=== PATIENT | female | born 2000 | race American Indian/Alaskan Native ===

== ENCOUNTER 2019-04-16 13:29 | Outpatient (CLI) | payer MEDICAID ==
[2019-04-16 13:58] VITALS: BP 113/58
== END 2019-04-16 14:31 | disposition home or self-care (01) ==
LOC: TRG 13:29
PROVIDERS: ATTEND Obstetrics & Gynecology
DX: O47.1 False labor at or after 37 completed weeks of gestation (principal); Z3A.39 39 weeks gestation of pregnancy

== ENCOUNTER 2021-10-25 20:06 | Emergency (ER) | payer MEDICAID ==
[2021-10-25 20:19] VITALS: BP 114/79
[2021-10-26] MEDS ORDERED: HYDROcodone/ACETAMINOPHEN 5-325 MG TAB PO ONE (01:02)
[2021-10-26] MEDS ORDERED: IBUPROFEN 600 MG TAB PO ONE (01:02)
[2021-10-26] MEDS ORDERED: ONDANSETRON 4 MG ODT TAB PO ONE (01:02)
[2021-10-26 01:35] LABS: Basophils # (Auto) 0.1 K/mm3 (0.0-0.1); Basophils % (Auto) 0.5 % (0.0-1.8); Eosinophils # (Auto) 0.3 K/mm3 (0.0-0.4); Eosinophils % (Auto) 2.6 % (0.0-4.3); Hematocrit 39.9 % (30.3-42.9); Hemoglobin 13.2 gm/dl (10.1-14.3); Lymphocytes # (Auto) 4.5 K/mm3 (1.2-5.4); Lymphocytes % (Auto) 38.4 % (13.4-35.0); Mean Corpuscular HGB Conc 33 % (30-34); Mean Corpuscular Volume 86 fl (79-97); Monocytes # (Auto) 0.7 K/mm3 (0.0-0.8); Monocytes % (Auto) 5.6 % (0.0-7.3); Platelet Count 317 K/mm3 (140-440); Red Blood Count 4.62 M/mm3 (3.65-5.03); Red Cell Distribution Width 13.8 % (13.2-15.2)
[2021-10-26 01:39] LABS: Mucus,Urine 3+ /HPF
[2021-10-26 01:41] LABS: Bilirubin,Urine Negative (Negative); Color,Urine Yellow (Yellow)
[2021-10-26 01:42] LABS: Blood,Urine Moderate (Negative); Urobilinogen,Urine < 2.0 mg/dL (<2.0)
[2021-10-26 01:54] LABS: Alanine Aminotransferase 10 units/L (7-56); Albumin 4.1 g/dL (3.9-5); Blood Urea Nitrogen 5 mg/dL (7-17); Calcium 9.7 mg/dL (8.4-10.2); Hemolysis Index 31
[2021-10-26 01:57] LABS: BUN/Creatinine Ratio 7
[2021-10-26] MEDS ORDERED: LIDOCAINE-MPF (1%) 10 MG/1 ML VIAL 5 ML INFILTRATI ONE (02:29)
--- NOTE | 2021-10-26 04:16 | Emergency Department Report ---
ED Female HPI - General Chief complaint: Pain General Stated complaint: BODY PAIN X 30 DAYS Source: patient Mode of arrival: Stretcher Limitations: No Limitations - History of Present Illness Initial comments: Patient is a A0 21-year-old -Sammarinese female with a history of asthma who presents to the ED with complaint of acute onset persistent suprapubic pain, persistent dysmenorrhea with heavy vaginal bleeding for the last 1 month. Patient states that she has a subcutaneous Nexplanon implant on her left upper arm for the last 6 months and that she has not had the symptoms since the control was placed in her left upper arm. Patient states that the bleeding has been constant and persistent with severe dysmenorrhea. Patient also complains of nausea and vomiting and headache with lightheadedness for the last 3 days, stating that the suprapubic pain now radiates to the low back. Patient denies fever, chills, diarrhea, dyspareunia, vaginal discharge, dysuria, chest pain or shortness of breath or sore throat. MD Complaint: vaginal bleeding, pelvic pain -: Gradual, month(s) (1) Location: suprapubic Radiation: non-radiating Severity: severe Severity scale (0 -10): 8 Quality: cramping, sharp Consistency: constant Improves with: none Worsens with: menstrual period Are you Now?: No Associated Symptoms: denies other symptoms, vaginal bleeding, abdominal pain (Suprapubic), nausea/vomiting, fever/chills, headaches, loss of appetite. denie s: vaginal discharge, dysuria, hematuria, seizure, shortness of breath, syncope, weakness - Related Data Sexually active: Yes : 2 Para: 2 A: 0 Previous Rx's Medication Instructions Recorded Last Taken Type Ibuprofen [Motrin] 600 mg PO Q8H PRN #30 tablet 10/26/21 Unknown Rx Ondansetron [Zofran Odt] 4 mg PO Q8HR PRN #15 tab.rapdis 10/26/21 Unknown Rx cephALEXin [Keflex] 500 mg PO Q8HR #30 cap 10/26/21 Unknown Rx medroxyPROGESTERone ACETATE 10 mg PO DAILY #14 tab 10/26/21 Unknown Rx [Medroxyprogesterone Acetate] traMADoL [Ultram] 50 mg PO Q6HR PRN #12 tablet 10/26/21 Unknown Rx Allergies Allergy/AdvReac Type Severity Reaction Status Date / Time No Known Allergies Allergy Verified 04/16/19 13:57 ED Review of Systems ROS: Stated complaint: BODY PAIN X 30 DAYS Other details as noted in HPI Constitutional: denies: chills, fever Eyes: denies: eye pain, eye discharge, vision change ENT: denies: ear pain, throat pain Respiratory: denies: cough, shortness of breath, wheezing Cardiovascular: denies: chest pain, palpitations Endocrine: no symptoms reported Gastrointestinal: abdominal pain (Suprapubic pain), nausea, vomiting. denies: diarrhea Genitourinary: frequency, abnormal menses (Heavy vaginal bleeding ). denies: urgency, dysuria, discharge Musculoskeletal: denies: back pain, joint swelling, arthralgia Skin: denies: rash, lesions Neurological: headache. denies: weakness, paresthesias Psychiatric: denies: anxiety, depression Hematological/Lymphatic: denies: easy bleeding, easy bruising ED Past Medical Hx - Past Medical History Previous Medical History?: Yes Hx Hypertension: No Hx Diabetes: No Hx Deep Vein Thrombosis: No Hx Renal Disease: No Hx Sickle Cell Disease: No Hx Seizures: No Hx Asthma: Yes (as a child) Hx HIV: No - Surgical History Past Surgical History?: No - Social History Smoking Status: Never Smoker Substance Use Type: None - Medications Home Medications: Home Medications Medication Instructions Recorded Confirmed Last Taken Type Ibuprofen [Motrin] 600 mg PO Q8H PRN #30 tablet 10/26/21 Unknown Rx Ondansetron [Zofran Odt] 4 mg PO Q8HR PRN #15 tab.rapdis 10/26/21 Unknown Rx cephALEXin [Keflex] 500 mg PO Q8HR #30 cap 10/26/21 Unknown Rx medroxyPROGESTERone ACETATE 10 mg PO DAILY #14 tab 10/26/21 Unknown Rx [Medroxyprogesterone Acetate] traMADoL [Ultram] 50 mg PO Q6HR PRN #12 tablet 10/26/21 Unknown Rx ED Physical Exam - General Limitations: No Limitations General appearance: alert, in no apparent distress - Head Head exam: Present: atraumatic, normocephalic, normal inspection - Eye Eye exam: Present: normal appearance, PERRL, EOMI Pupils: Present: normal accommodation - ENT ENT exam: Present: normal exam, normal orophraynx, mucous membranes moist, TM's normal bilaterally, normal external ear exam - Neck Neck exam: Present: normal inspection, full ROM - Respiratory Respiratory exam: Present: normal lung sounds bilaterally. Absent: respiratory distress, wheezes, rales, rhonchi, chest wall tenderness, accessory muscle use, decreased breath sounds, prolonged expiratory - Cardiovascular Cardiovascular Exam: Present: regular rate, normal rhythm, normal heart sounds. Absent: systolic murmur, diastolic murmur, rubs, gallop - GI/Abdominal GI/Abdominal exam: Present: soft, tenderness (Palpable mild suprapubic tenderness), normal bowel sounds. Absent: guarding, rebound, hyperactive bowel sounds, hypoactive bowel sounds, organomegaly, mass - Bi-manual exam: Present: other (Pelvic exam deferred at this time) - Extremities Exam Extremities exam: Present: normal inspection, full ROM, normal capillary refill. Absent: tenderness - Back Exam Back exam: Present: normal inspection, full ROM, tenderness (Palpable lumbosac ral paraspinal musculoskeletal tender), muscle spasm, paraspinal tenderness. Absent: CVA tenderness (R), CVA tenderness (L) - Neurological Exam Neurological exam: Present: alert, oriented X3, CN II-XII intact, normal gait, reflexes normal - Psychiatric Psychiatric exam: Present: normal affect, normal mood - Skin Skin exam: Present: warm, dry, intact, normal color. Absent: rash ED Course Vital Signs 10/25/21 20:16 Temperature 98.2 F Pulse Rate 79 Respiratory 18 Rate Blood Pressure 114/79 O2 Sat by Pulse 99 Oximetry ED Medical Decision Making - Lab Data Result diagrams: 10/26/21 01:14 10/26/21 01:14 - Medical Decision Making This is a A0 21-year-old -Sammarinese female with a history of asthma who presents to the ED with complaint of acute onset persistent suprapubic pain, persistent dysmenorrhea with heavy vaginal bleeding for the last 1 month. Patient states that she has a subcutaneous Nexplanon implant on her left upper arm for the last 6 months and that she has not had the symptoms since the control was placed in her left upper arm. Patient states that the bleeding has been constant and persistent with severe dysmenorrhea. Patient also complains of nausea and vomiting and headache with lightheadedness for the last 3 days, stating that the suprapubic pain now radiates to the low back. In the ED, patient is alert and oriented x3 and is not in any distress. Patient was treated for pain in the ED. Lab test results were reviewed and are all nonactionable except for mild acute leukocytosis of 11,700 and significant urinary tract infection in urinalysis. Patient was treated for pain in the ED and also given Rocephin 1 g intramuscular injection in the ED. On reevaluation, patient's pain is well controlled medication. Patient will discharge home on pain medications and antibiotics and advised to follow-up with her MD PHYSICIAN DERMATOLOGIST physician in 5 to 7 days for reevaluation or return to the ED immediately if symptoms get worse - Differential Diagnosis Dysmenorrhea; UTI; miscarriage; uterine fibroids; ovarian cyst; Critical care attestation.: If time is entered above; I have spent that time in minutes in the direct care of this critically ill patient, excluding procedure time. ED Disposition Clinical Impression: Dysfunctional or functional uterine hemorrhage, Acute urinary tract infection, Severe dysmenorrhea, Menometrorrhagia Disposition: 01 HOME / SELF CARE / HOMELESS Is pt being admited?: No Does the pt Need Aspirin: No Condition: Stable Instructions: Urinary Tract Infection, Adult, Qbwg-[id number]-Gqug, Metrorrhagia, Huyq-ki-Hfvo, Menorrhagia, Scrb-sk-Nxnn, Abnormal Uterine Bleeding, Zitd-qb-Lgue, Dysmenorrhea, Ytql-oh-Crdh Additional Instructions: All lab test results were reviewed and are all nonactionable except for urinalysis that showed significant urinary tract infection. Therefore take medication with food, drink plenty of fluids, follow-up with your MD PHYSICIAN DERMATOLOGIST physician in 5 to 7 days for reevaluation. Return to the ED immediately if symptoms get worse Prescriptions: cephALEXin [Keflex] 500 mg PO Q8HR #30 cap medroxyPROGESTERone ACETATE [Medroxyprogesterone Acetate] 10 mg PO DAILY #14 tab Ibuprofen [Motrin] 600 mg PO Q8H PRN #30 tablet PRN Reason: Pain traMADoL [Ultram] 50 mg PO Q6HR PRN #12 tablet PRN Reason: Pain Ondansetron [Zofran Odt] 4 mg PO Q8HR PRN #15 tab.rapdis PRN Reason: Nausea Referrals: MAGDIEL LOERA MD [Staff Physician] - 7-10 days Forms: Work/School Release Form(ED) Time of Disposition: 04:20 Print Language: MALTESE
== END 2021-10-26 04:33 | disposition home or self-care (01) ==
LOC: ED 20:06
DX: N39.0 Urinary tract infection, site not specified (principal); N93.8 Other specified abnormal uterine and vaginal bleeding; N94.6 Dysmenorrhea, unspecified; N92.1 Excessive and frequent menstruation with irregular cycle; J45.909 Unspecified asthma, uncomplicated; Z79.899 Other long term (current) drug therapy
CPT/HCPCS: 36415; 80053; 81001; 84702; 85025; 87086; 96372; 99283; J0696; J3490; Q0162

== ENCOUNTER 2022-02-02 23:01 | Emergency (ER) | payer MEDICAID ==
--- NOTE | 2022-02-03 09:26 | Emergency Department Report ---
ED General Adult HPI - General Chief complaint: Back Pain/Injury Stated complaint: LOWER BACK PAIN/HEADACHE Time Seen by Provider: 02/03/22 07:31 Source: patient Mode of arrival: Ambulatory Limitations: No Limitations - History of Present Illness Initial comments: This is a 21-year-old female nontoxic, well nourished in appearance, no acute signs of distress presents to the ED with c/o of generalized body aches, left hip pains, and lower back pain x several days. Patient stated that she was seen in an urgent care and was instructed to get chest xrays, lumbar and left hip imaging. Patient denies any radiation of pain. Patient otherwise denies any other complaints or symptoms. Denies any injuries. Denies any bladder or bowel instability. Patient denies any urinary symptoms. Denies any abdominal pains, flank pains, urinary symptoms, fever, chills, nausea, vomiting, headache, stiff neck, chest pain or shortness of breath. Patient denies any numbness or tingling. Denies any allergies. -: days(s) Radiation: non-radiation Severity scale (0 -10): 8 Quality: aching Consistency: intermittent Improves with: movement Worsens with: immobilization Associated Symptoms: denies other symptoms. denies: confusion, chest pain, cough, diaphoresis, fever/chills, headaches, loss of appetite, malaise, nausea/vomiting, rash, seizure, shortness of breath, syncope, weakness Treatments Prior to Arrival: none - Related Data Previous Rx's Medication Instructions Recorded Last Taken Type Ibuprofen [Motrin] 600 mg PO Q8H PRN #30 tablet 10/26/21 Unknown Rx Ondansetron [Zofran Odt] 4 mg PO Q8HR PRN #15 tab.rapdis 10/26/21 Unknown Rx cephALEXin [Keflex] 500 mg PO Q8HR #30 cap 10/26/21 Unknown Rx medroxyPROGESTERone ACETATE 10 mg PO DAILY #14 tab 10/26/21 Unknown Rx [Medroxyprogesterone Acetate] traMADoL [Ultram] 50 mg PO Q6HR PRN #12 tablet 10/26/21 Unknown Rx Naproxen 500 mg PO Q12H PRN #12 tab 02/03/22 Unknown Rx Allergies Allergy/AdvReac Type Severity Reaction Status Date / Time No Known Allergies Allergy Verified 04/16/19 13:57 ED Review of Systems ROS: Stated complaint: LOWER BACK PAIN/HEADACHE Other details as noted in HPI Comment: All other systems reviewed and negative Constitutional: denies: chills, fever Eyes: denies: eye pain, eye discharge, vision change ENT: denies: ear pain, throat pain Respiratory: denies: cough, shortness of breath, wheezing Cardiovascular: denies: chest pain, palpitations Endocrine: no symptoms reported Gastrointestinal: denies: abdominal pain, nausea, vomiting, diarrhea, constipation, hematemesis, melena, hematochezia Genitourinary: denies: urgency, dysuria, discharge Musculoskeletal: back pain. denies: joint swelling, arthralgia Skin: denies: rash, lesions Neurological: denies: headache, weakness, paresthesias Psychiatric: denies: anxiety, depression Hematological/Lymphatic: denies: easy bleeding, easy bruising ED Past Medical Hx - Past Medical History Hx Hypertension: No Hx Diabetes: No Hx Deep Vein Thrombosis: No Hx Renal Disease: No Hx Sickle Cell Disease: No Hx Seizures: No Hx Asthma: Yes (as a child) Hx HIV: No - Social History Smoking Status: Never Smoker Substance Use Type: None - Medications Home Medications: Home Medications Medication Instructions Recorded Confirmed Last Taken Type Ibuprofen [Motrin] 600 mg PO Q8H PRN #30 tablet 10/26/21 Unknown Rx Ondansetron [Zofran Odt] 4 mg PO Q8HR PRN #15 tab.rapdis 10/26/21 Unknown Rx cephALEXin [Keflex] 500 mg PO Q8HR #30 cap 10/26/21 Unknown Rx medroxyPROGESTERone ACETATE 10 mg PO DAILY #14 tab 10/26/21 Unknown Rx [Medroxyprogesterone Acetate] traMADoL [Ultram] 50 mg PO Q6HR PRN #12 tablet 10/26/21 Unknown Rx Naproxen 500 mg PO Q12H PRN #12 tab 02/03/22 Unknown Rx ED Physical Exam - General Limitations: No Limitations General appearance: alert, in no apparent distress - Head Head exam: Present: atraumatic, normocephalic - Eye Eye exam: Present: normal appearance - Neck Neck exam: Present: normal inspection, full ROM. Absent: tenderness, meningismus, lymphadenopathy - Respiratory Respiratory exam: Present: normal lung sounds bilaterally. Absent: respiratory distress, wheezes, rales, rhonchi, stridor, chest wall tenderness, accessory muscle use, decreased breath sounds, prolonged expiratory - Cardiovascular Cardiovascular Exam: Present: regular rate, normal rhythm, normal heart sounds. Absent: bradycardia, tachycardia, irregular rhythm, systolic murmur, diastolic murmur, rubs, gallop - GI/Abdominal GI/Abdominal exam: Present: soft, normal bowel sounds. Absent: distended, tenderness, guarding, rebound, rigid, diminished bowel sounds - Extremities Exam Extremities exam: Present: normal inspection, full ROM, normal capillary refill. Absent: tenderness, pedal edema, joint swelling, calf tenderness - Back Exam Back exam: Present: normal inspection, full ROM, paraspinal tenderness (left lumbar paraspinal). Absent: tenderness, CVA tenderness (R), CVA tenderness (L), muscle spasm, vertebral tenderness, rash noted - Expanded Back Exam Expanded Back exam: Absent: saddle anesthesia Back exam: Negative Straight Leg Raising: Left, Right - Neurological Exam Neurological exam: Present: alert, oriented X3, normal gait - Psychiatric Psychiatric exam: Present: normal affect, normal mood - Skin Skin exam: Present: warm, dry, intact, normal color. Absent: rash ED Course Vital Signs 02/02/22 02/03/22 02/03/22 23:35 09:35 09:37 Temperature 98.1 F 97.6 F 97.6 F Pulse Rate 65 60 Respiratory 18 18 Rate Blood Pressure 97/40 Blood Pressure 103/60 [Left] O2 Sat by Pulse 99 100 Oximetry - Reevaluation(s) Reevaluation #1: 02/03/22 09:31 Patient is speaking in full sentences with no signs of distress noted. ED Medical Decision Making - Lab Data Result diagrams: 02/03/22 08:30 02/03/22 08:30 Lab Results 02/03/22 02/03/22 02/03/22 Range/Units 08:04 08:30 08:30 WBC 12.3 H (4.5-11.0) K/mm3 RBC 4.50 (3.65-5.03) M/mm3 Hgb 13.1 (10.1-14.3) gm/dl Hct 39.0 (30.3-42.9) % MCV 87 (79-97) fl MCH 29 (28-32) pg MCHC 34 (30-34) % RDW 14.8 (13.2-15.2) % Plt Count 232 (140-440) K/mm3 Lymph % (Auto) 23.3 (13.4-35.0) % Dixie % (Auto) 5.7 (0.0-7.3) % Eos % (Auto) 0.1 (0.0-4.3) % Baso % (Auto) 0.1 (0.0-1.8) % Lymph # (Auto) 2.9 (1.2-5.4) K/mm3 Dixie # (Auto) 0.7 (0.0-0.8) K/mm3 Eos # (Auto) 0.0 (0.0-0.4) K/mm3 Baso # (Auto) 0.0 (0.0-0.1) K/mm3 Seg Neutrophils % 70.8 H (40.0-70.0) % Seg Neutrophils # 8.7 H (1.8-7.7) K/mm3 Sodium 137 (137-145) mmol/L Potassium 4.1 (3.6-5.0) mmol/L Chloride 102.7 (98-107) mmol/L Carbon Dioxide 22 (22-30) mmol/L Anion Gap 16 mmol/L BUN 9 (7-17) mg/dL Creatinine 0.6 (0.6-1.2) mg/dL Estimated GFR > 60 ml/min BUN/Creatinine Ratio 15 % Glucose 95 (65-100) mg/dL Calcium 9.6 (8.4-10.2) mg/dL Total Bilirubin 0.20 (0.1-1.2) mg/dL AST 9 (5-40) units/L ALT < 5 L (7-56) units/L Alkaline Phosphatase 59 (35-129) units/L Total Creatine Kinase 67 (30-135) units/L Total Protein 6.3 (6.3-8.2) g/dL Albumin 4.2 (3.9-5) g/dL Albumin/Globulin Ratio 2.0 % HCG, Qual (Negative) Urine Color Yellow (Yellow) Urine Turbidity Hazy (Clear) Specific [place] (Man) 1.020 (1.003-1.030) Ur Protein (Man) <30 mg dl (Negative) mg/dL Ur Ketones (Man) Negative (Negative) Ur Nitrite (Man) Negative (Negative) Ur Reducing Substances Not Reportable Urine Bilirubin (Man) Negative (Negative) Urine Ictotest Not Reportable Leukocyte Esterase (Man) Negative (Negative) Urine WBC (Auto) 4.0 (0.0-6.0) /HPF Urine RBC (Auto) 1.0 (0.0-6.0) /HPF U Epithel Cells (Auto) 11.0 (0-13.0) /HPF Urine RBC (Manual) 3+ (Negative) Urine Mucus 3+ /HPF 02/03/22 Range/Units 08:30 WBC (4.5-11.0) K/mm3 RBC (3.65-5.03) M/mm3 Hgb (10.1-14.3) gm/dl Hct (30.3-42.9) % MCV (79-97) fl MCH (28-32) pg MCHC (30-34) % RDW (13.2-15.2) % Plt Count (140-440) K/mm3 Lymph % (Auto) (13.4-35.0) % Dixie % (Auto) (0.0-7.3) % Eos % (Auto) (0.0-4.3) % Baso % (Auto) (0.0-1.8) % Lymph # (Auto) (1.2-5.4) K/mm3 Dixie # (Auto) (0.0-0.8) K/mm3 Eos # (Auto) (0.0-0.4) K/mm3 Baso # (Auto) (0.0-0.1) K/mm3 Seg Neutrophils % (40.0-70.0) % Seg Neutrophils # (1.8-7.7) K/mm3 Sodium (137-145) mmol/L Potassium (3.6-5.0) mmol/L Chloride (98-107) mmol/L Carbon Dioxide (22-30) mmol/L Anion Gap mmol/L BUN (7-17) mg/dL Creatinine (0.6-1.2) mg/dL Estimated GFR ml/min BUN/Creatinine Ratio % Glucose (65-100) mg/dL Calcium (8.4-10.2) mg/dL Total Bilirubin (0.1-1.2) mg/dL AST (5-40) units/L ALT (7-56) units/L Alkaline Phosphatase (35-129) units/L Total Creatine Kinase (30-135) units/L Total Protein (6.3-8.2) g/dL Albumin (3.9-5) g/dL Albumin/Globulin Ratio % HCG, Qual Negative (Negative) Urine Color (Yellow) Urine Turbidity (Clear) Specific [place] (Man) (1.003-1.030) Ur Protein (Man) (Negative) mg/dL Ur Ketones (Man) (Negative) Ur Nitrite (Man) (Negative) Ur Reducing Substances Urine Bilirubin (Man) (Negative) Urine Ictotest Leukocyte Esterase (Man) (Negative) Urine WBC (Auto) (0.0-6.0) /HPF Urine RBC (Auto) (0.0-6.0) /HPF U Epithel Cells (Auto) (0-13.0) /HPF Urine RBC (Manual) (Negative) Urine Mucus /HPF - Radiology Data [facility] [address] [place] [address] XRay Report Signed Patient: LEON JOSHI MR#: [id number] : 2000 Acct:[id number] Age/Sex: 21 / F ADM Date: 02/02/22 Loc: ED Attending Dr: Ordering Physician: GINGER KAUR NP Date of Service: 02/03/22 Procedure(s): XR spine lumbosacral 2-3V Accession Number(s): [id number] cc: GINGER KAUR NP Fluoro Time In Minutes: LUMBAR SPINE 3 VIEWS INDICATION / CLINICAL INFORMATION: pain. COMPARISON: None available. FINDINGS: VERTEBRAE: No acute fracture. No significant malalignment. DISC SPACES / FACET JOINTS:No significant abnormality. PARASPINAL SOFT TISSUES:No significant abnormality. ADDITIONAL FINDINGS: Straightening of the normal lordotic curvature of the lumbar spine. Mild separation of the coccygeal elements. IMPRESSION: 1. Mild separation of the coccygeal elements. Correlation with point tenderness is recommended to exclude fracture. 2. Otherwise, no acute abnormality. Signer Name: Dacia Oliveira MD Signed: 02/03/2022 10:58 AM Workstation Name: [id number] Transcribed By: Dictated By: DACIA OLIVEIRA MD Electronically Authenticated By: DACIA OLIVEIRA MD Signed Date/Time: 02/03/22 105 DD/ 56 TD/TT: [address] [address] XRay Report Signed Patient: LEON JOSHI MR#: [id number] : 2000 Acct:[id number] Age/Sex: 21 / F ADM Date: 02/02/22 Loc: ED Attending Dr: Ordering Physician: GINGER KAUR NP Date of Service: 02/03/22 Procedure(s): XR hip 2-3V LT Accession Number(s): [id number] cc: GINGER KAUR NP Fluoro Time In Minutes: LEFT HIP 2 VIEW(S) INDICATION / CLINICAL INFORMATION: pain COMPARISON: None available. FINDINGS: BONES / JOINT(S): No acute fracture or subluxation. No significant arthritis. SOFT TISSUES: No significant abnormality. ADDITIONAL FINDINGS: None. IMPRESSION: 1. No acute findings. Signer Name: Dacia Oliveira MD Signed: 02/03/2022 10:57 AM Workstation Name: [id number] Transcribed By: Dictated By: DACIA OLIVEIRA MD Electronically Authenticated By: DACIA OLIVEIRA MD Signed Date/Time: 02/03/221056 DD/ 55 TD/TT: [address] [address] XRay Report Signed Patient: LEON JOSHI MR#: [id number] : 2000 Acct:[id number] Age/Sex: 21 / F ADM Date: 02/02/22 Loc: ED Attending Dr: Ordering Physician: GINGER KAUR NP Date of Service: 02/03/22 Procedure(s): XR chest routine 2V Accession Number(s): [id number] cc: GINGER KAUR NP Fluoro Time In Minutes: CHEST 2 VIEWS INDICATION / CLINICAL INFORMATION: pain. COMPARISON: None available. FINDINGS: SUPPORT DEVICES: None. HEART / MEDIASTINUM: No significant abnormality. LUNGS / PLEURA: No significant pulmonary or pleural abnormality. No pneumothorax. ADDITIONAL FINDINGS: No significant additional findings. IMPRESSION: 1. No acute findings. Signer Name: Dacia Oliveira MD Signed: 02/03/2022 10:57 AM Workstation Name: [id number] Transcribed By: Dictated By: DACIA OLIVEIRA MD Electronically Authenticated By: DACIA OLIVEIRA MD Signed Date/Time: 02/03/22 1057 DD/ 1057 TD/TT: [place] [address] Cat Scan Report Signed Patient: LEON JOSHI MR#: [id number] : 2000 Acct:[id number] Age/Sex: 21 / F ADM Date: 02/02/22 Loc: ED Attending Dr: Ordering Physician: GINGER KAUR NP Date of Service: 02/03/22 Procedure(s): CT lumbar spine wo con Accession Number(s): [id number] cc: GINGER KAUR NP CT lumbar spine wo con INDICATION / CLINICAL INFORMATION: low back pain w/ abnormal xray. TECHNIQUE: Axial, coronal and sagittal images All CT scans at this location are performed using CT dose reduction for ALARA by means of automated exposure control. COMPARISON: None available. FINDINGS: Alignment appears normal. Facets are well aligned throughout. No focal soft tissue swelling is seen. There is a small amount of free fluid in the pelvis. Visualized sacrum and sacroiliac joints appear normal. IMPRESSION: 1. No acute lumbar spine fractures seen. There is tilt of the coccyx anteriorly. No displaced injury is seen however posterior aspect of the sacrum not well seen on sagittal images. No surrounding soft tissue edema is identified. If patient's pain persists in this area MRI could be performed. Signer Name: Johnson Mendez MD Signed: 02/03/2022 1:00 PM Workstation Name: [id number] Transcribed By: CW Dictated By: LEONIE MENDEZ MD Electronically Authenticated By: LEONIE MENDEZ MD Signed Date/Time: 02/03/22 1300 DD/ 1259 TD/TT: - Medical Decision Making This is a 21-year-old female that presents with low back pain, left hip pain and generalized body aches. Patient is stable was examined by me. There is no spinal tenderness. There is no cauda equina syndrome during examination. No bladder or bowel instability. Patient received Medical treatment in the ED which her symptoms has resolved and subsided. Patient is discharged with Naproxen. Patient was referred to Follow-up with a primary care doctor in 3-5 days or if symptoms worsen and continue return to emergency room as soon as possible. At time of discharge, the patient does not seem toxic or ill in appearance. No acute signs of distress noted. Patient agrees to discharge treatment plan of care. No further questions noted by the patient. This chart is dictated with using [employer] Dictation Program Critical care attestation.: If time is entered above; I have spent that time in minutes in the direct care of this critically ill patient, excluding procedure time. ED Disposition Clinical Impression: Left hip pain, Generalized body aches Low back pain Qualifiers: Chronicity: acute Back pain laterality: left Sciatica presence: without sciatica Qualified Code(s): M54.50 - Low back pain, unspecified Disposition: 01 HOME / SELF CARE / HOMELESS Is pt being admited?: No Does the pt Need Aspirin: No Condition: Stable Additional Instructions: Follow-up with a primary care doctor in 3-5 days or if symptoms worsen and continue return to emergency room as soon as possible. Prescriptions: Naproxen 500 mg PO Q12H PRN #12 tab PRN Reason: Pain , Severe (7-10) Referrals: EDDIE HINTON MD [Primary Care Provider] - 3-5 Days PRIMARY CAREMD [Referring] - 3-5 Days Time of Disposition: 13:12
[2022-02-03] MEDS ORDERED: HYDROcodone/ACETAMINOPHEN 10-325MG TAB PO ONE (09:29)
[2022-02-03 09:32] LABS: Mucus,Urine 3+ /HPF
[2022-02-03 09:36] VITALS: BP 103/60
[2022-02-03 09:38] LABS: Color,Urine Yellow (Yellow)
[2022-02-03 09:47] LABS: Basophils % (Auto) 0.1 % (0.0-1.8); Eosinophils % (Auto) 0.1 % (0.0-4.3); Hemoglobin 13.1 gm/dl (10.1-14.3); Lymphocytes # (Auto) 2.9 K/mm3 (1.2-5.4); Lymphocytes % (Auto) 23.3 % (13.4-35.0); Mean Corpuscular HGB Conc 34 % (30-34); Mean Corpuscular Volume 87 fl (79-97); Monocytes # (Auto) 0.7 K/mm3 (0.0-0.8); Monocytes % (Auto) 5.7 % (0.0-7.3); Platelet Count 232 K/mm3 (140-440); Red Cell Distribution Width 14.8 % (13.2-15.2)
[2022-02-03 10:04] LABS: Albumin 4.2 g/dL (3.9-5); Blood Urea Nitrogen 9 mg/dL (7-17); Calcium 9.6 mg/dL (8.4-10.2); Hemolysis Index 9
[2022-02-03 10:07] LABS: Alanine Aminotransferase < 5 units/L (7-56); BUN/Creatinine Ratio 15
--- NOTE | 2022-02-03 11:01 | XRay Report ---
LEFT HIP 2 VIEW(S) INDICATION / CLINICAL INFORMATION: pain COMPARISON: None available. FINDINGS: BONES / JOINT(S): No acute fracture or subluxation. No significant arthritis. SOFT TISSUES: No significant abnormality. ADDITIONAL FINDINGS: None. IMPRESSION: 1. No acute findings. Signer Name: Ta Oliveira MD Signed: 02/03/2022 10:57 AM Workstation Name: [email or web address]
--- NOTE | 2022-02-03 11:02 | XRay Report ---
CHEST 2 VIEWS INDICATION / CLINICAL INFORMATION: pain. COMPARISON: None available. FINDINGS: SUPPORT DEVICES: None. HEART / MEDIASTINUM: No significant abnormality. LUNGS / PLEURA: No significant pulmonary or pleural abnormality. No pneumothorax. ADDITIONAL FINDINGS: No significant additional findings. IMPRESSION: 1. No acute findings. Signer Name: Ta Oliveira MD Signed: 02/03/2022 10:57 AM Workstation Name: [email or web address]
--- NOTE | 2022-02-03 11:03 | XRay Report ---
LUMBAR SPINE 3 VIEWS INDICATION / CLINICAL INFORMATION: pain. COMPARISON: None available. FINDINGS: VERTEBRAE: No acute fracture. No significant malalignment. DISC SPACES / FACET JOINTS:No significant abnormality. PARASPINAL SOFT TISSUES:No significant abnormality. ADDITIONAL FINDINGS: Straightening of the normal lordotic curvature of the lumbar spine. Mild separat ion of the coccygeal elements. IMPRESSION: 1. Mild separation of the coccygeal elements. Correlation with point tenderness is recommended to exc lude fracture. 2. Otherwise, no acute abnormality. Signer Name: Ta Oliveira MD Signed: 02/03/2022 10:58 AM Workstation Name: [email or web address]
--- NOTE | 2022-02-03 13:05 | Cat Scan Report ---
CT lumbar spine wo con INDICATION / CLINICAL INFORMATION: low back pain w/ abnormal xray. TECHNIQUE: Axial, coronal and sagittal images All CT scans at this location are performed using CT dose reductio n for ALARA by means of automated exposure control. COMPARISON: None available. FINDINGS: Alignment appears normal. Facets are well aligned throughout. No focal soft tissue swelling is seen. There is a small amount of free fluid in the pelvis. Visualized sacrum and sacroiliac joints appear n ormal. IMPRESSION: 1. No acute lumbar spine fractures seen. There is tilt of the coccyx anteriorly. No displaced injury is seen however posterior aspect of the sacrum not well seen on sagittal images. No surrounding soft tissue edema is identified. If patient's pain persists in this area MRI could be performed. Signer Name: Johnson Mendez MD Signed: 02/03/2022 1:00 PM Workstation Name: [id number]
== END 2022-02-03 13:58 | disposition home or self-care (01) ==
LOC: ED 23:01
DX: M25.552 Pain in left hip (principal); M79.10 Myalgia, unspecified site; M54.50 Low back pain, unspecified
CPT/HCPCS: 36415; 71046; 72100; 72131; 80053; 81001; 82550; 84703; 85025; 99284